=== PATIENT | male | born 1975 | race Caucasian/White ===

== ENCOUNTER 2020-01-07 16:23 | Inpatient (IN) | payer OTHER ==
[~2020-01-07] VITALS: Ht 167.6 cm; Wt 65.3 kg
--- NOTE | 2020-01-07 18:33 | NUR ---
STOCKROOM SUPERVISOR: PT AMBULATORY TO ROOM FROM LOBBY
--- NOTE | 2020-01-07 18:47 | NUR ---
PATIENT WALKED BACK FROM TRIAGE WITH CHIEF C/O SOB, "CHEST WALL PAIN" AND FEVER. PATIENT STATES HE HAS HAD THESE STYMPTOMS FOR 2 WEEKS, [facility] AND WAS SENT HOME, HE WAS NOT TESTED FOR COVID OR FLU. PATIENT DENIES N/V/D, DENIES LOSS OF TASTE OR SMELL. NO SIGNS OF ACUTE DISTRESS, CONNECTED TO VITALS MACHINE, CALL LIGHT WITHIN REACH.
--- NOTE | 2020-01-07 19:09 | NUR ---
[facility] AT BEDSIDE FOR EVALUATION.
--- NOTE | 2020-01-07 20:12 | NUR ---
PATIENT RESTING IN GURNEY WATCHING TV, NO SIGNS OF ACUTE DISTRESS, CONNECTED TO VITALS MACHINE, CALL LIGHT WITHIN REACH.
[2020-01-07 20:49] LABS: MEAN CORPUSCULAR HEMOGLOBIN 32.7 pg (27.5-34.5); MEAN CORPUSCULAR HGB CONC 33.4 g/dL (33.2-36.2); MEAN PLATELET VOLUME 10.1 fL (7.4-10.4); PLATELET COUNT 311 x10^3/uL (130-400); RED BLOOD COUNT 3.59 x10^6/uL (4.38-5.82); RED CELL DISTRIBUTION WIDTH 13.5 % (9.4-14.8)
[2020-01-07 20:53] LABS: ALANINE AMINOTRANSFERASE 56 U/L (12-78); ALBUMIN 2.9 g/dL (3.4-5.0); ANION GAP 6 mmol/L (5-15); CALCIUM 8.5 mg/dL (8.5-10.1); CHLORIDE 104 mmol/L (98-107)
[2020-01-07] MEDS ORDERED: CEFTRIAXONE PMX 1GM/50ML 50 ML ONE (20:58)
[2020-01-07 21:00] LABS: ALKALINE PHOSPHATASE 138 U/L (45-117); BILIRUBIN,TOTAL 0.7 mg/dL (0.2-1.0); TOTAL PROTEIN 6.9 g/dL (6.4-8.2); TROPONIN I < 0.015 ng/mL (0.000-0.045)
[2020-01-07] MEDS ORDERED: CEFTRIAXONE PMX 1GM/50ML 50 ML IV ONE (21:00)
[2020-01-07 21:02] LABS: D-DIMER (DIC) 6.97 ug/mlFEU (0.00-0.52); PROTIME 12.8 Seconds (9.6-11.5)
[2020-01-07 21:03] LABS: C-REACTIVE PROTEIN, QUANT > 19.00 mg/dL (0.02-0.49)
[2020-01-07 21:07] LABS: MD YES
[2020-01-07 21:17] LABS: <PLATELET ESTIMATE> ADEQUATE; LYMPH#(MANUAL) 1.34 x10^3/uL (1-3.4); LYMPHS% (MANUAL) 6 % (22-44); MONOS#(MANUAL) 2.23 x10^3/uL (0.3-2.7); MONOS% (MANUAL) 10 % (2-9); SEG#(MANUAL) 18.73 x10^3/uL (1.8-6.8); SEGS% (MANUAL) 84 % (42-75)
[2020-01-07 21:18] LABS: <PLT MORPHOLOGY> NORMAL PLT MORPH; ANISOCYTOSIS 1+; HYPOCHROMIA 1+
[2020-01-07 21:19] LABS: TEAR DROPS 1+
[2020-01-07 21:20] LABS: POLYCHROMASIA 1+
[2020-01-07] MEDS: DOXYCYCLINE 100 MG in DEXTROSE 5% 250 ML IV SCH (21:51)
--- NOTE | 2020-01-07 21:56 | NUR ---
PATIENT RESTING IN GURNEY WATCHING TV, NO SIGNS OF ACUTE DISTRESS, CONNECTED TO VITALS MACHINE, VIBRAMYCIN HUNG, CALL LIGHT WITHIN REACH.
--- NOTE | 2020-01-07 23:23 | NUR ---
MESSAGE LEFT FOR HOUSEKEEPING REQUESTING HOSPITAL BED FOR PATIENT.
[2020-01-07] MEDS ORDERED: OMNIPAQUE 350 MG/ML, 100ML BOTTLE ONE (23:24)
--- NOTE | 2020-01-07 23:33 | NUR ---
[facility] AT BEDSIDE TO DISCUSS ADMISSION POC.
--- NOTE | 2020-01-07 23:37 | NUR ---
PATIENT RESTING IN GURNEY WATCHING TV, CONNECTED TO SOLDERER TORCH PER [facility] REQUEST, NO SIGNS OF ACUTE DISTRESS, CALL LIGHT WITHIN REACH.
--- NOTE | 2020-01-07 23:53 | NUR ---
REPORT GIVEN TO NOAH VOGEL FOR TRANSFER OF PATIENT CARE.
[2020-01-08] MEDS ORDERED: ACETAMINOPHEN 325 MG TABLET PO PRN (00:30)
[2020-01-08] MEDS ORDERED: ENOXAPARIN 60 MG/0.6 ML SQ SCH (00:30)
[2020-01-08] MEDS ORDERED: PHARMACY MAY ADJ FOR RENAL FX MC PRN (00:30)
[2020-01-08] MEDS ORDERED: hydrALAzine 20 MG/ML, 1ML IVPush PRN (00:30)
[2020-01-08] MEDS ORDERED: DOCUSATE 100 MG CAPSULE PO PRN (00:30)
[2020-01-08] MEDS ORDERED: ENOXAPARIN 60 MG/0.6 ML ONE ×2 (00:53→21:57)
[2020-01-08] MEDS ORDERED: IBUPROFEN 800 MG TABLET ONE ×3 (00:53→19:55)
[2020-01-08] MEDS ORDERED: DEXAMETHASONE 4 MG/ML, 1ML ONE ×2 (00:53→21:57)
[2020-01-08] MEDS ORDERED: MELATONIN 5 MG TABLET ONE ×2 (00:53→19:55)
[2020-01-08] MEDS: DEXAMETHASONE 4 MG/ML, 1ML IVPush SCH ×2 (00:57→22:04)
[2020-01-08] MEDS: IBUPROFEN 800 MG TABLET PO SCH ×4 (00:57→21:00)
[2020-01-08] MEDS: MELATONIN 5 MG TABLET PO SCH ×2 (00:57→20:03)
[2020-01-08 02:05] LABS: TROPONIN I < 0.015 ng/mL (0.000-0.045)
[2020-01-08] MEDS ORDERED: NICOTINE 21 MG/24 HR PATCH.TD24 TD ONE (03:00)
[2020-01-08 05:51] LABS: ANION GAP 8 mmol/L (5-15); CALCIUM 8.6 mg/dL (8.5-10.1); CHLORIDE 107 mmol/L (98-107)
[2020-01-08 05:51] LABS: BASOPHILS % (AUTO) 0 % (0-1); EOSINOPHILS % (AUTO) 0 % (1-7); LYMPHOCYTES % (AUTO) 4 % (22-44); MEAN CORPUSCULAR HEMOGLOBIN 32.5 pg (27.5-34.5); MEAN CORPUSCULAR HGB CONC 33.3 g/dL (33.2-36.2); MEAN PLATELET VOLUME 10.2 fL (7.4-10.4); MONOCYTES % (AUTO) 4 % (2-9); NEUTROPHILS % (AUTO) 91 % (42-75); PLATELET COUNT 275 x10^3/uL (130-400); RED BLOOD COUNT 3.42 x10^6/uL (4.38-5.82); RED CELL DISTRIBUTION WIDTH 13.2 % (9.4-14.8)
[2020-01-08 05:52] LABS: MD NO
--- NOTE | 2020-01-08 05:53 | NUR ---
Patient resting comfortably. Noted to ab NSR on the monitor. VSS. Offers no complaints at this time. Bed in low position and call light within reach
--- NOTE | 2020-01-08 06:57 | NUR ---
BEDSIDE REPORT RECEIVED FROM LELA ZAMORA
--- NOTE | 2020-01-08 07:05 | NUR ---
PT SITTING UPRIGHT ON HOSPITAL BED WATCHING TV, NAD, VSS. PT STATES "I ACTUALLY FEEL QUITE A BIT BETTER", DENIES ANY NEEDS AT THIS TIME. CALL LIGHT AND PERSONAL BELONGINGS WITHIN REACH. ISOLATION PRECAUTIONS IN PLACE. WILL CONTINUE TO MONITOR.
[2020-01-08] MEDS: CHOLECALCIFEROL 5,000u TAB PO SCH (07:06)
[2020-01-08] MEDS: ZINC SULFATE 220 MG CAPSULE PO SCH (07:06)
[2020-01-08] MEDS: ASCORBIC ACID 500 MG TABLET PO SCH ×2 (07:06→20:03)
[2020-01-08] MEDS: THIAMINE 100MG TABLET PO SCH (07:06)
--- NOTE | 2020-01-08 08:05 | NUR ---
PT SITTING UPRIGHT ON HOSPITAL BED WATCHING TV, NAD, VSS. DENIES ANY NEEDS AT THIS TIME. CALL LIGHT AND PERSONAL BELONGINGS WITHIN REACH. ISOLATION PRECAUTIONS IN PLACE. WILL CONTINUE TO MONITOR.
[2020-01-08] MEDS: DOXYCYCLINE 100 MG in DEXTROSE 5% 250 ML IV SCH ×3 (08:10→20:04)
[2020-01-08 08:24] LABS: TROPONIN I < 0.015 ng/mL (0.000-0.045)
--- NOTE | 2020-01-08 09:06 | NUR ---
SEEN BY DR GUERRERO, US AT BS FOR ECHO.
--- NOTE | 2020-01-08 10:35 | NUR ---
[facility] AT BEDSIDE
--- NOTE | 2020-01-08 12:24 | NUR ---
BREAK RN: VSS NO NEEDS AT THIS TIME
--- NOTE | 2020-01-08 13:05 | NUR ---
PT USING URINAL AT BEDSIDE. PT SITTING UPRIGHT ON HOSPITAL BED WATCHING TV, NAD, VSS. DENIES ANY NEEDS AT THIS TIME. CALL LIGHT AND PERSONAL BELONGINGS WITHIN REACH. ISOLATION PRECAUTIONS IN PLACE. WILL CONTINUE TO MONITOR.
--- NOTE | 2020-01-08 14:03 | NUR ---
PT SITTING UPRIGHT ON HOSPITAL BED WATCHING TV. PT DENIES ANY NEEDS AT THIS TIME. CALL LIGHT AND PERSONAL BELONGINGS WITHIN REACH.
--- NOTE | 2020-01-08 15:00 | NUR ---
PT SITTING UPRIGHT ON HOSPITAL BED WATCHING TV. PT DENIES ANY NEEDS AT THIS TIME. CALL LIGHT AND PERSONAL BELONGINGS WITHIN REACH.
--- NOTE | 2020-01-08 16:30 | NUR ---
CALL TO DR. GUERRERO REGARDING DIET ORDER FOR PT. WILL COME TO ED SOON TO EVAL PT.
--- NOTE | 2020-01-08 16:42 | NUR ---
CALL TO DR. GUERRERO REGARDING DIET ORDER FOR PT. OK FOR PT TO HAVE REGULAR DIET TRAY.
--- NOTE | 2020-01-08 17:00 | NUR ---
PT SITTING UPRIGHT ON HOSPITAL BED WATCHING TV. VSS, NAD. PT PROVIDED DINNER MEAL TRAY. PT DENIES ANY NEEDS AT THIS TIME. CALL LIGHT AND PERSONAL BELONGINGS WITHIN REACH. ISOLATION PRECAUTIONS IN PLACE. WILL CONTINUE TO MONITOR.
--- NOTE | 2020-01-08 18:44 | NUR ---
BEDSIDE REPORT FROM FIDEL ZAMORA, PT CARE TRANSFERRED AT THIS TIME. PT IS NAD, RESTING ON HOSPITAL BED, APPEARS COMFORTABLE, BED IN LOWEST, CALL LIGHT ON LAP, WCTM. WAITING FOR ADMIT BED.
[2020-01-08] MEDS ORDERED: ASCORBIC ACID 500 MG TABLET ONE (19:55)
[2020-01-08] MEDS ORDERED: CEFTRIAXONE PMX 1GM/50ML 50 ML ONE (19:55)
[2020-01-08] MEDS: CEFTRIAXONE PMX 1GM/50ML 50 ML IV SCH (20:04)
--- NOTE | 2020-01-08 20:17 | NUR ---
PT MEDICATED PER APR, NAD, RESTING ON HOSPITAL BED COMFORTABLY, DENIES ADDITIONAL QUESTIONS AT THIS TIME. URINAL EMPTIED, EMPTY MEAL TRAY DISPOSED OF. EVEN AND UNLABORED RESPIRATIONS, BED IN LOWEST, CALL LIGHT ON LAP, WCTM. WAITING FOR ADMIT BED.
--- NOTE | 2020-01-08 21:55 | NUR ---
pt nad, resting on hospital bed, appears comfortable, denies additional questions or needs, no change in condition, wctm.
[2020-01-08] MEDS: ENOXAPARIN 60 MG/0.6 ML SQ SCH (22:00)
--- NOTE | 2020-01-08 22:11 | NUR ---
PT MEDICATED PER MAR, UPDATED ON POC, NAD, DENIES ADDITIONAL QUESTIONS OR NEEDS AT THIS TIME. BED IN LOWEST, CALL LIGHT ON LAP. WCTM. WAITING FOR ADMIT BED
--- NOTE | 2020-01-09 01:37 | NUR ---
pt resting on hospital bed, nad, even and unlabored respirations, appears comfortable, no change in condition. waiting for admit bed, wctm.
--- NOTE | 2020-01-09 03:01 | NUR ---
PT RESTING ON HOSPITAL BED, NAD, APPEARS COMFORTABLE, EYES CLOSED, EVEN AND UNLABORED RESPIRATIONS, BED IN LOWEST, WCTM.
--- NOTE | 2020-01-09 04:19 | NUR ---
PT RESTING ON HOSPITAL BED, NAD, APPEARS COMFORTABLE, EVEN AND UNLABORED RESPIRATIONS, NO CHANGE IN CONDITION, WAITING FOR ADMIT BED. WCTM.
[2020-01-09 05:27] LABS: BASOPHILS % (AUTO) 0 % (0-1); EOSINOPHILS % (AUTO) 0 % (1-7); LYMPHOCYTES % (AUTO) 4 % (22-44); MEAN CORPUSCULAR HEMOGLOBIN 32.9 pg (27.5-34.5); MEAN CORPUSCULAR HGB CONC 33.2 g/dL (33.2-36.2); MEAN PLATELET VOLUME 10.2 fL (7.4-10.4); MONOCYTES % (AUTO) 5 % (2-9); NEUTROPHILS % (AUTO) 92 % (42-75); PLATELET COUNT 323 x10^3/uL (130-400); RED BLOOD COUNT 3.52 x10^6/uL (4.38-5.82); RED CELL DISTRIBUTION WIDTH 13.6 % (9.4-14.8)
[2020-01-09 05:38] LABS: ALBUMIN 2.3 g/dL (3.4-5.0); ANION GAP 3 mmol/L (5-15); CALCIUM 8.4 mg/dL (8.5-10.1); CHLORIDE 109 mmol/L (98-107)
[2020-01-09 05:41] LABS: ALANINE AMINOTRANSFERASE 42 U/L (12-78); ALKALINE PHOSPHATASE 110 U/L (45-117); BILIRUBIN,TOTAL 0.3 mg/dL (0.2-1.0); CREATININE 0.75 mg/dL (0.7-1.3); TOTAL PROTEIN 6.2 g/dL (6.4-8.2)
[2020-01-09 05:55] LABS: D-DIMER 3.99 ug/mlFEU (0.00-0.52); INTERNATIONAL NORMALIZED RATIO 1.2 (0.93-1.1); PROTHROMBIN TIME 12.7 Seconds (9.6-11.5)
[2020-01-09 06:14] LABS: MD SCAN
--- NOTE | 2020-01-09 06:54 | NUR ---
PT LAYING ON HOSPITAL BED, NAD, SITTING UP WATCHING TV AND PLAYING ON PHONE, CALL LIGHT ON LAP, PT DENIES ADDITIONAL QUESTIONS OR NEEDS AT THIS TIME. NO CHANGE IN CONDITION. WAITING FOR ADMIT BED. REPORT TO TRUDY RN, PT CARE TRANSFERRED AT THIS TIME.
--- NOTE | 2020-01-09 07:07 | NUR ---
BEDSIDE REPORT FROM VAMSHI ZAMORA. PT SLEEPING IN NAD, EVEN UNLABORED RESPIRATIONS.
--- NOTE | 2020-01-09 08:35 | NUR ---
PT AWAKE, REPORTS PAIN ONLY WHEN COUGHING, DECLINES PAIN MEDICATION AT THIS TIME. VSS.
--- NOTE | 2020-01-09 08:58 | NUR ---
REPORT FROM TRUDY, ASSUME CARE OF PT AT THIS TIME.
--- NOTE | 2020-01-09 08:59 | NUR ---
REPORT GIVEN TO JAI ZAMORA.
[2020-01-09] MEDS ORDERED: THIAMINE 100MG TABLET ONE (09:03)
[2020-01-09] MEDS ORDERED: DEXAMETHASONE 4 MG/ML, 1ML ONE (09:03)
[2020-01-09] MEDS ORDERED: IBUPROFEN 800 MG TABLET ONE (09:03)
[2020-01-09] MEDS ORDERED: CHOLECALCIFEROL 5,000u TAB ONE (09:03)
[2020-01-09] MEDS ORDERED: ASCORBIC ACID 500 MG TABLET ONE (09:04)
[2020-01-09] MEDS ORDERED: ZINC SULFATE 220 MG CAPSULE ONE (09:04)
[2020-01-09] MEDS: ZINC SULFATE 220 MG CAPSULE PO SCH (09:08)
[2020-01-09] MEDS: ASCORBIC ACID 500 MG TABLET PO SCH ×2 (09:08→21:13)
[2020-01-09] MEDS: THIAMINE 100MG TABLET PO SCH (09:08)
[2020-01-09] MEDS: CHOLECALCIFEROL 5,000u TAB PO SCH (09:08)
[2020-01-09] MEDS: IBUPROFEN 800 MG TABLET PO SCH ×3 (09:09→21:00)
[2020-01-09] MEDS: DEXAMETHASONE 4 MG/ML, 1ML IVPush SCH (09:11)
--- NOTE | 2020-01-09 09:27 | NUR ---
ATTEMPT TO CALL REPORT.
[2020-01-09] MEDS: DOXYCYCLINE 100 MG in DEXTROSE 5% 250 ML IV SCH ×3 (09:30→22:13)
--- NOTE | 2020-01-09 09:43 | NUR ---
REPORT TO PAMELA PRADO READY FOR TRANSPORT TO FLOOR.
[2020-01-09 10:31] VITALS: BP 90/53
[2020-01-09 12:17] VITALS: BP 95/55
[2020-01-09] MEDS ORDERED: IBUPROFEN 200 MG TABLET ONE ×2 (16:07→21:02)
[2020-01-09] MEDS ORDERED: IBUPROFEN 600 MG TABLET ONE (16:07)
[2020-01-09 19:53] VITALS: BP 99/56
[2020-01-09] MEDS: MELATONIN 5 MG TABLET PO SCH (21:13)
[2020-01-09] MEDS: ENOXAPARIN 60 MG/0.6 ML SQ SCH (21:14)
[2020-01-09] MEDS: CEFTRIAXONE PMX 1GM/50ML 50 ML IV SCH (21:14)
[2020-01-10 01:55] VITALS: BP 104/65
[2020-01-10 06:25] LABS: ALBUMIN 2.1 g/dL (3.4-5.0); ANION GAP 5 mmol/L (5-15); BASOPHILS % (AUTO) 1 % (0-1); CALCIUM 8.4 mg/dL (8.5-10.1); CHLORIDE 110 mmol/L (98-107); EOSINOPHILS % (AUTO) 0 % (1-7); LYMPHOCYTES % (AUTO) 10 % (22-44); MEAN CORPUSCULAR HEMOGLOBIN 32.2 pg (27.5-34.5); MEAN PLATELET VOLUME 9.7 fL (7.4-10.4); MONOCYTES % (AUTO) 6 % (2-9); NEUTROPHILS % (AUTO) 83 % (42-75); PLATELET COUNT 341 x10^3/uL (130-400); RED BLOOD COUNT 3.73 x10^6/uL (4.38-5.82); RED CELL DISTRIBUTION WIDTH 13.5 % (9.4-14.8)
[2020-01-10 06:31] LABS: D-DIMER 6.48 ug/mlFEU (0.00-0.52); INTERNATIONAL NORMALIZED RATIO 1.2 (0.93-1.1); PROTHROMBIN TIME 12.7 Seconds (9.6-11.5)
[2020-01-10 06:33] LABS: ALANINE AMINOTRANSFERASE 39 U/L (12-78); ALKALINE PHOSPHATASE 95 U/L (45-117); BILIRUBIN,TOTAL 0.3 mg/dL (0.2-1.0); CREATININE 0.76 mg/dL (0.7-1.3); TOTAL PROTEIN 5.9 g/dL (6.4-8.2)
[2020-01-10 06:59] VITALS: BP 106/92
[2020-01-10] MEDS: DEXAMETHASONE 4 MG/ML, 1ML IVPush SCH (08:47)
[2020-01-10] MEDS: IBUPROFEN 800 MG TABLET PO SCH ×2 (08:47→16:52)
[2020-01-10] MEDS: ZINC SULFATE 220 MG CAPSULE PO SCH (08:48)
[2020-01-10] MEDS: CHOLECALCIFEROL 5,000u TAB PO SCH (08:48)
[2020-01-10] MEDS: ASCORBIC ACID 500 MG TABLET PO SCH (08:48)
[2020-01-10] MEDS: THIAMINE 100MG TABLET PO SCH (08:48)
[2020-01-10 09:04] LABS: MD SCAN
[2020-01-10] MEDS: DOXYCYCLINE 100 MG in DEXTROSE 5% 250 ML IV SCH (09:56)
[2020-01-10 11:51] VITALS: BP 110/61
[2020-01-10] MEDS ORDERED: IBUP-1223 PO (16:29)
[2020-01-10] MEDS ORDERED: FAMO10TA77 PO (16:29)
[2020-01-10] MEDS ORDERED: AZIT250T PO (16:30)
[2020-01-10] MEDS ORDERED: CEFD300C37 PO (16:30)
== END 2020-01-10 17:40 | disposition home or self-care (01) | DRG 314 ==
LOC: ED 16:53 → EDIP 23:10 → 4WST 01-09 10:20
PROVIDERS: ADMIT Family Medicine; ATTEND Family Medicine
DX: I30.1 Infective pericarditis (principal); J15.9 Unspecified bacterial pneumonia; F17.210 Nicotine dependence, cigarettes, uncomplicated; I31.3 Pericardial effusion (noninflammatory); D53.9 Nutritional anemia, unspecified; Z20.828 Contact with and (suspected) exposure to other viral communicable diseases
CPT/HCPCS: 36415; 71045; 71275; 80048; 80053; 82728; 83605; 83615; 83735; 83880; 84100; 84145; 84443; 84484; 85025; 85049; 85379; 85384; 85610; 85730; 86140; 87040; 93005; 93308; 93321; 93325; G0378; J0696; J1100; J1650; J7060; Q9967; U0003